=== PATIENT | male | born 1950 | race Caucasian/White ===

== ENCOUNTER 2020-08-27 21:02 | Inpatient (IN) | payer OTHER ==
[~2020-08-27] VITALS: Ht 177.8 cm; Wt 63.5 kg
[2020-08-27 21:06] VITALS: BP 179/86
[2020-08-27] MEDS ORDERED: NORTRIPTYLINE H25 M3 PO (21:20)
[2020-08-27] MEDS ORDERED: ASPIRIN-DIPYRI1 EACH PO (21:20)
[2020-08-27] MEDS ORDERED: LEXAPRO20 MG PO (21:21)
[2020-08-27] MEDS ORDERED: PROTONIX40 M4 PO (21:21)
[2020-08-27] MEDS ORDERED: LEVO-T75 MCG PO (21:22)
[2020-08-27] MEDS ORDERED: CLOPIDOGREL75 MG PO (21:22)
[2020-08-27] MEDS ORDERED: LIPITOR40 MG PO (21:22)
[2020-08-27] MEDS ORDERED: VITAMIN C WIT1000 MG PO (21:23)
[2020-08-27] MEDS ORDERED: SUPER THERAVIT1 EACH PO (21:23)
[2020-08-27 22:23] LABS: ABSOLUTE NEUTROPHILS 10.7 thou/uL (1.4-8.2); BASOPHILS 0.2 % (0.0-2.0); EOSINOPHILS 0.6 % (0.0-3.0); HEMATOCRIT 41.9 % (42.0-52.0); HEMOGLOBIN 14.4 gm/dL (14.0-18.0); LYMPHOCYTES 10.4 % (24.0-44.0); MCH 32.3 pg (26.0-34.0); MCHC 34.4 g/dL (28.0-37.0); MCV 93.9 fL (80.0-100.0); MONOCYTES 10.4 % (1.0-8.0); PLATELET COUNT 167 thou/uL (150-400); POLYS 78.4 % (36.0-66.0); RBC 4.47 mil/uL (4.50-6.00); RDW 13.9 % (10.5-14.5); WBC 13.6 thou/uL (4.0-11.0)
[2020-08-27 22:29] LABS: CALCIUM 8.7 mg/dL (8.5-10.1); POTASSIUM 4.2 mmol/L (3.5-5.1)
[2020-08-27 22:33] LABS: ALBUMIN 3.2 g/dL (3.4-5.0); DIRECT BILIRUBIN 0.2 mg/dL (<0.1-0.2); TOTAL BILIRUBIN 0.6 mg/dL (0.2-1.0); TOTAL PROTEIN 7.5 g/dL (6.4-8.2)
[2020-08-27 23:07] VITALS: BP 179/86
[2020-08-27 23:23] VITALS: BP 141/71
[2020-08-28 00:06] VITALS: BP 160/78
[2020-08-28 04:00] VITALS: BP 104/53
[2020-08-28 06:09] LABS: HEMATOCRIT 41.3 % (42.0-52.0); HEMOGLOBIN 14.1 gm/dL (14.0-18.0); MCH 32.4 pg (26.0-34.0); MCHC 34.1 g/dL (28.0-37.0); RBC 4.34 mil/uL (4.50-6.00); RDW 14.2 % (10.5-14.5); WBC 14.4 thou/uL (4.0-11.0)
[2020-08-28 06:12] LABS: CALCIUM 8.4 mg/dL (8.5-10.1); CREATININE 0.9 mg/dL (0.7-1.3); POTASSIUM 3.9 mmol/L (3.5-5.1)
[2020-08-28 08:22] VITALS: BP 126/92
[2020-08-28 13:47] LABS: CLARITY CLOUDY; COLOR YELLOW; TOTAL VOLUME 8.5 mL
[2020-08-28 13:49] LABS: SOURCE LEFT ELBOW
[2020-08-28 14:47] LABS: BF CRYSTALS No Crystals seen (NONE SEEN)
[2020-08-28 15:56] LABS: BF NEUTROPHILS 88 %; BF NUCLEATED CELLS 70994 /mm3; BF RBC 18874 /mm3
[2020-08-28 15:57] LABS: BF MACROPHAGE 11 %
[2020-08-28 16:33] VITALS: BP 138/66
[2020-08-28 19:20] VITALS: BP 146/69
[2020-08-29 02:30] VITALS: BP 129/62
[2020-08-29 08:00] VITALS: BP 132/88
--- NOTE | 2020-08-29 11:50 | HC ---
[facility] [place] [address] CONSULTATION Name: CAROLINE MOCTEZUMA Room #: 437-P [facility] IN M.R.#: [id number] Admission: 08/27/20 Attend Phys: Lila Ramsay Discharge: Date of : 48 Report #: [id number] THIS REPORT FOR: cc: GÉNESIS ABARCA Physician not on staff Freddy Stark MD ~ DOC #: [id number] Freddy Stark MD DATE OF SERVICE: 08/28/2020 INFECTIOUS DISEASE CONSULTATION ATTENDING PHYSICIAN: Dr. Ramsay. REASON FOR EVALUATION: Left olecranon septic bursitis. HISTORY OF PRESENT ILLNESS: Chart reviewed. The patient examined. This is a 70-year-old gentleman who has a significant medical disease burden much of which related to severe unrelenting chronic back pain, is not relieved with analgesics. Had developed severe pain associated with his mid portion of his left upper extremity around the elbow, noted he had been lifting some 8-pound weights, trying to improve his overall physical ability. It just continued to get worse. He did note some fevers. Denies any antecedent injury other than the repetitive motion. Denies significant change, pulmonary or gastrointestinal related complaints. Was evaluated, mildly elevated white count 13.6. Lactic acid 0.9. Plain film of the elbow, no evidence of fracture or dislocation. There is some prominence involving the olecranon suggest excess fluid. Procalcitonin was 0.25. Blood cultures collected at the time of admission are negative thus far. No evidence of deep venous thrombosis. Did note complex fluid collection at the elbow joint. More specifically subcutaneous soft tissues of the posterior elbow near the olecranon. Did undergo operative drainage procedure. Cultures pending. Gram stain did show many PMNs, few gram-positive cocci. There is no evidence of crystals. Awaiting cell count with differential. Empirically placed on therapy with vancomycin. At this point, he is not overtly toxic. He is in moderate to marked distress, which is acute on chronic. ALLERGIES: PENICILLINS, DOXYCYCLINE. CURRENT MEDICATIONS: Include nortriptyline, escitalopram, atorvastatin, clopidogrel, famotidine, fentanyl, ipratropium, albuterol inhaler, budesonide, levothyroxine, pantoprazole, vancomycin, hydrocodone and has required ondansetron. PAST MEDICAL HISTORY: Above noted severe chronic back pain, previous history of CVA, depression, elevated cholesterol, hypothyroidism, previous history of [facility] [address] [place] [address] CONSULTATION Name: CAROLINE MOCTEZUMA Room #: 437-P [facility] IN ..#: [id number] Admission: 08/27/20 Attend Phys: Lila Ramsay Discharge: Date of : 48 Report #: [id number] tongue carcinoma, COPD. SOCIAL HISTORY: Smokes a pack to pack and half a day. No illicit drug use. No ethanol. FAMILY HISTORY: Noncontributory. REVIEW OF SYSTEMS: Otherwise, denies any significant change in pulmonary or gastrointestinal related status. PHYSICAL EXAMINATION: GENERAL: Appears chronically ill, undernourished, moderate distress. He is generally lucid. VITAL SIGNS: Temperature 98.4, pulse 78, respirations 18, blood pressure 126/92. SKIN: Warm, dry, no rashes. HEENT: Normocephalic. Extraocular muscles intact. NECK: Supple. LUNGS: Diminished breath sounds, overall few scattered crackles at the bases. HEART: Regular, soft systolic murmur. ABDOMEN: Mildly distended, somewhat firm. EXTREMITIES: Left upper extremity has moderate degree of edema. There is some prominence involving the olecranon, appears to be excess fluid in the bursa, although he does have decreased range of motion, is difficult to ascertain. I do not believe he has a significant joint effusion. GENITOURINARY AND RECTAL: Deferred. LABORATORY DATA: Fluid analysis pending. No crystals seen. Blood cultures sterile thus far. Most recent CBC: White count of 14.4, H and H 14.1 and 41.3, platelets 176. Electrolytes 134, potassium 3.9, chloride 100, bicarbonate is 21, anion gap of 13, BUN and creatinine 14 and 0.9. Procalcitonin of 0.25. Lactic acid 0.9. ASSESSMENT AND PLAN: Left olecranon septic bursitis. I think it is not entirely clear as to the etiology, perhaps had low level injury that he was unaware of due to the severe back pain fact that he is on significant analgesics versus perhaps a transient septicemia. Blood cultures sterile thus far. At any rate, the initial Gram stain showed gram-positive cocci. This should have likely staph or strep etiology. Vancomycin should give us a reasonable coverage. We will await additional results. In the event of a septic bursitis, may well need operative debridement perhaps bursectomy. We will continue to monitor expectantly. At this point, he is not overtly toxic, although he is quite uncomfortable. I think he will tolerate compression at this point, continue elevation. We will add incentive spirometry. Discussed in detail with the patient. We will follow. [address] [address] CONSULTATION Name: CAROLINE MOCTEZUMA Room #: 437-P ADM IN M.R.#: [id number] Admission: 08/27/20 Attend Phys: Lila Ramsay Discharge: Date of : 48 Report #: [id number] Freddy Stark MD JWB/JAGDEEP <ELECTRONICALLY SIGNED> By: Freddy Stark MD 08/29/20 1150 1400 [id number] Freddy Stark MD /nt
[2020-08-29 16:00] VITALS: BP 118/76
[2020-08-29 17:59] VITALS: BP 114/50
[2020-08-29 20:46] VITALS: BP 131/71
[2020-08-30 05:56] LABS: HEMATOCRIT 39.9 % (42.0-52.0); HEMOGLOBIN 13.4 gm/dL (14.0-18.0); MCH 32.1 pg (26.0-34.0); MCHC 33.7 g/dL (28.0-37.0); MCV 95.3 fL (80.0-100.0); RBC 4.19 mil/uL (4.50-6.00); RDW 13.9 % (10.5-14.5); WBC 11.8 thou/uL (4.0-11.0)
[2020-08-30 07:30] VITALS: BP 127/73
[2020-08-30 15:27] VITALS: BP 134/72
[2020-08-30 20:20] VITALS: BP 132/76
[2020-08-31 03:40] VITALS: BP 137/76
[2020-08-31 05:04] LABS: HEMOGLOBIN 12.5 gm/dL (14.0-18.0); MCH 32.1 pg (26.0-34.0); MCHC 33.9 g/dL (28.0-37.0); MCV 94.7 fL (80.0-100.0); RBC 3.9 mil/uL (4.50-6.00); RDW 14.1 % (10.5-14.5); WBC 10.9 thou/uL (4.0-11.0)
[2020-08-31 08:56] VITALS: BP 130/67
[2020-08-31] MEDS ORDERED: PERCOCET PO (14:36)
[2020-08-31 15:18] VITALS: BP 130/67
[2020-09-01] MEDS ORDERED: ANCEF 1GM1 GM/50 M2 IV (15:34)
--- NOTE | 2020-09-09 09:58 | O ---
[facility] [place] [address] OPERATIVE REPORT Name: MOCTEZUMACAROLINE Garcia Room #: 437-P [facility].R.#: [id number] Admission: 08/27/20 Attend Phys: Lila Ramsay Discharge: 08/31/20 Date of : 48 Report #: [id number] THIS REPORT FOR: cc: GÉNESIS ABARCA Physician not on staff Jacobo Benavidez MD ~ DOC #: [id number] Jacobo Benavidez MD DATE OF SERVICE: 08/29/2020 PREOPERATIVE DIAGNOSIS: Left olecranon septic bursitis. POSTOPERATIVE DIAGNOSIS: Left olecranon septic bursitis. PROCEDURE: I and D of the left olecranon bursa. SURGEON: Jacobo Benavidez MD. ATHLETIC TRAINING INTERNSHIP: None. ANESTHESIA: LMA. TOURNIQUET TIME: 11 minutes. ESTIMATED BLOOD LOSS: 10 mL COMPLICATIONS: None. CONDITION UPON LEAVING THE OR: Stable. INDICATIONS FOR PROCEDURE: The patient is a 70-year-old gentleman who has had left elbow pain and redness and swelling for several days. He had ultrasound-guided aspiration of his olecranon bursa that revealed Gram-positive cocci. After discussion with him, he elected for I and D of the elbow. DESCRIPTION OF PROCEDURE: Risks, benefits, alternatives, complications were discussed in detail with the patient including but not limited to risk of anesthesia, risk of damage to nerves, arteries, blood vessels, risk for continued infection, need for reoperation. Informed consent was obtained from the patient. The left elbow was appropriately marked in the preoperative holding area. Previously was on IV vancomycin and this was continued. He was brought to the operating room and placed in supine position on the operating room table. LMA anesthesia was induced without complication. Tourniquet was placed on the left upper extremity. This was then prepped and draped in normal sterile fashion. [facility] [address] [place] [address] OPERATIVE REPORT Name: CAROLINE MOCTEZUMA Room #: 437-P [facility] IN .R.#: [id number] Admission: 08/27/20 Attend Phys: Lila Ramsay Discharge: 08/31/20 Date of : 48 Report #: [id number] was performed properly identifying the patient and procedure as well as instrumentation. All in the operating room in agreement. Left upper extremity was elevated, tourniquet was inflated. Tourniquet time was 11 minutes. A longitudinal incision over the olecranon bursa was made through the skin with a #15 blade. Upon entering the bursa, a large amount of purulent fluid was drained. Bursa sac was opened and bursal tissue was removed with a rongeur. The skin and soft tissue was then thoroughly irrigated with normal saline using pulse lavage. The bursa was then packed with half-inch iodoform gauze. Skin was closed with 3-0 nylon and a soft dressing was applied. The patient tolerated this procedure well and went to the recovery room under the care of Anesthesia postoperatively. MD RICKY Hastings/TARA <ELECTRONICALLY SIGNED> By: Jacobo Benavidez MD 09/09/20 [id number] Jacobo Benavidez MD /nt
== END 2020-08-31 15:57 | disposition home health service (06) | DRG 853 ==
LOC: ER 21:02 → 4S 22:44 → EROBS 22:44 → 4S 23:23
PROVIDERS: Nurse Practitioner; Orthopaedic Surgery Sports Medicine; ADMIT Hospitalist; ATTEND Hospitalist
PROC: 0J9H0ZZ Drainage of Left Lower Arm Subcutaneous Tissue and Fascia, Open Approach (ICD-10-PCS; principal; 2020-08-28)
PROC: 0M943ZZ Drainage of Left Elbow Bursa and Ligament, Percutaneous Approach (ICD-10-PCS; 2020-08-29)
PROC: 05HY33Z Insertion of Infusion Device into Upper Vein, Percutaneous Approach (ICD-10-PCS; 2020-08-31)
DX: A41.9 Sepsis, unspecified organism (principal); J96.01 Acute respiratory failure with hypoxia; L03.114 Cellulitis of left upper limb; M71.122 Other infective bursitis, left elbow; R65.10 Systemic inflammatory response syndrome (SIRS) of non-infectious origin without acute organ dysfunction; Z20.822 Contact with and (suspected) exposure to COVID-19; G89.29 Other chronic pain; M54.9 Dorsalgia, unspecified; F32.9 Major depressive disorder, single episode, unspecified; E78.00 Pure hypercholesterolemia, unspecified; E89.0 Postprocedural hypothyroidism; J44.9 Chronic obstructive pulmonary disease, unspecified; Z96.651 Presence of right artificial knee joint; I73.9 Peripheral vascular disease, unspecified; I25.10 Atherosclerotic heart disease of native coronary artery without angina pectoris; E78.5 Hyperlipidemia, unspecified; G47.00 Insomnia, unspecified; F17.210 Nicotine dependence, cigarettes, uncomplicated; B95.7 Other staphylococcus as the cause of diseases classified elsewhere; Z86.73 Personal history of transient ischemic attack (TIA), and cerebral infarction without residual deficits; Z85.810 Personal history of malignant neoplasm of tongue; Z88.1 Allergy status to other antibiotic agents; Z88.0 Allergy status to penicillin; Z85.850 Personal history of malignant neoplasm of thyroid
CPT/HCPCS: 10102; 27000; 50010; 50101; 50386; 53078; 56525; 57091; 57103; 62110; 62900; 70005